=== PATIENT | male | born 1970 | race Caucasian/White ===

== ENCOUNTER 2016-10-01 15:03 | Emergency (ER) | payer BC ==
[~2016-10-01] VITALS: Ht 175.3 cm; Wt 81.8 kg
[2016-10-01 15:04] VITALS: BP 151/91
[2016-10-01] MEDS ORDERED: ATOR80TA59 PO (15:10)
[2016-10-01] MEDS ORDERED: PLAV1TAB2 PO (15:10)
[2016-10-01] MEDS ORDERED: ASPI81TA85 PO (15:10)
[2016-10-01] MEDS ORDERED: CENT1TAB13 PO (15:10)
[2016-10-01] MEDS ORDERED: ADACEL/BOOSTRIX VACCINE (DIPHTH/PERTUSS/ACELL/TETANUS)0.5ML SYR (90715) IM ONE (16:15)
[2016-10-01] MEDS ORDERED: LIDOCAINE 2% MDV 20 ML VIAL SC ONE (16:15)
[2016-10-01] MEDS ORDERED: TYLE325T5 PO (16:28)
== END 2016-10-01 16:59 | disposition home or self-care (01) ==
LOC: M ED 15:03
DX: S61.511A Laceration without foreign body of right wrist, initial encounter (principal); Z72.0 Tobacco use; W26.8XXA Contact with other sharp object(s), not elsewhere classified, initial encounter; Y92.096 Garden or yard of other non-institutional residence as the place of occurrence of the external cause; Y93.89 Activity, other specified; Y99.9 Unspecified external cause status